=== PATIENT | male | born 1990 | race Caucasian/White ===

== ENCOUNTER 2016-06-12 | Outpatient (CLI) | payer OTHER | END 2016-06-12 19:11 | disposition critical access hospital (66) | CPT/HCPCS: A0425; A0429 ==

== ENCOUNTER 2016-06-12 19:30 | Emergency (ER) | payer OTHER ==
[2016-06-12] MEDS ORDERED: SODIUM CHLORIDE 0.9% 1,000 ML IV ONE (19:53)
[2016-06-12] MEDS ORDERED: ONDANSETRON 4 MG/2 ML VIAL IVP STA (20:51)
[2016-06-12] MEDS ORDERED: POTASSIUM BICARB 25 MEQ TABLET PO STA (20:51)
[2016-06-12] MEDS ORDERED: ONDANSETRON 4 MG/2 ML VIAL ONE (21:01)
[2016-06-12] MEDS ORDERED: POTASSIUM BICARB 25 MEQ TABLET PO ONE (21:02)
[2016-06-12] MEDS ORDERED: metroNIDAZOLE 250 MG TABLET PO STA (22:07)
[2016-06-12] MEDS ORDERED: metroNIDAZOLE 250 MG TABLET PO ONE (22:14)
== END 2016-06-12 22:23 | disposition home or self-care (01) ==
DX: A04.7 Enterocolitis due to Clostridium difficile (principal)
CPT/HCPCS: 36415; 80053; 83690; 85025; 87045; 87046; 87077; 87177; 87209; 87493; 96374; 99283; A9270

== ENCOUNTER 2020-01-09 07:32 | Emergency (ER) | payer OTHER ==
[2020-01-09] MEDS ORDERED: ONDANSETRON 4 MG/2 ML VIAL IVP STA (07:47)
[2020-01-09] MEDS ORDERED: KETOROLAC 30 MG/ML VIAL IVP STA (07:47)
[2020-01-09] MEDS ORDERED: SODIUM CHLORIDE 0.9% 1,000 ML IV STA ×2 (07:47→08:57)
[2020-01-09 07:53] LABS: BASOPHILS % (AUTO) 0.4 %; EOSINOPHILS # (AUTO) 0.3 10^3/uL (0.0-0.7); EOSINOPHILS % (AUTO) 3.9 %; LYMPHOCYTES # (AUTO) 1.7 10^3/uL (1.5-3.5); LYMPHOCYTES % (AUTO) 23.4 %; MEAN CORPUSCULAR HEMOGLOBIN 30.8 pg (27.0-31.0); MEAN CORPUSCULAR HGB CONC 35.7 g/dL (32.0-36.0); MEAN CORPUSCULAR VOLUME 86.3 fL (80.0-94.0); MEAN PLATELET VOLUME 9.4 fL (7.4-11.4); MONOCYTES # (AUTO) 0.5 10^3/uL (0.0-1.0); MONOCYTES % (AUTO) 6.1 %; NEUTROPHILS # (AUTO) 4.9 10^3/uL (1.5-6.6); NEUTROPHILS % (AUTO) 65.8 %; PLT - PLATELET COUNT 256 10^3/uL (130-450); RED BLOOD COUNT 5.19 10^6/uL (4.70-6.10); RED CELL DISTRIBUTION WIDTH 12.1 % (12.0-15.0); WHITE BLOOD COUNT 7.4 x10^3/uL (4.8-10.8)
--- NOTE | 2020-01-09 07:54 | ED Physician Documentation ---
PD HPI ABD PAIN - Stated complaint Stated Complaint: ABD PX - Chief complaint Chief Complaint: Abd Pain - History obtained from History obtained from: Patient, Family - History of Present Illness Timing - onset: Enter time (0500), Today Timing - duration: Hours Timing - details: Abrupt onset, Still present Quality: Sharp, Pain Location: LUQ Radiation: Improved by: Other (nothing) Worsened by: Other (nothing) Associated symptoms: Nausea, Vomiting, Diarrhea. No: Fever Similar symptoms before: Has not had sx before Recently seen: Not recently seen - Additional information Additional information: 29-year-old male previously well awoke at 5 AM this morning with acute pain in the left side of his abdomen. He has radiation of pain from his flank into his testicle and there are no modifying factors. He has nausea he is vomited twice. He has had some diarrhea prior to all of this. He has not had kidney stone. He does have a history of [place] disease. Review of Systems Constitutional: denies: Fever Eyes: denies: Decreased vision Ears: denies: Ear pain Nose: denies: Congestion Throat: denies: Sore throat Cardiac: denies: Chest pain / pressure, Palpitations Respiratory: denies: Dyspnea, Cough GI: reports: Abdominal Pain, Nausea, Vomiting, Diarrhea : denies: Dysuria, Frequency Skin: denies: Rash Musculoskeletal: denies: Neck pain, Back pain, Extremity pain Neurologic: denies: Generalized weakness, Focal weakness, Numbness PD PAST MEDICAL HISTORY - Past Surgical History Past Surgical History: No - Present Medications Home Medications: Ambulatory Orders Medication Instructions Recorded Confirmed Ondansetron Odt [Zofran] 4 mg TL Q6H PRN #10 tablet 06/12/16 metroNIDAZOLE [Flagyl] 500 mg PO TID #45 tablet 06/12/16 Hydrocodone/Acetaminophen 1 - 2 each PO Q6H PRN #14 tablet 01/09/20 [Hydrocodone-Acetamin 5-325 mg] - Allergies Allergies/Adverse Reactions: Allergies Allergy/AdvReac Type Severity Reaction Status Date / Time No Known Drug Allergies Allergy Verified 01/09/20 07:38 - Social History Does the pt smoke?: No Smoking Status: Never smoker Does the pt drink ETOH?: No Does the pt have substance abuse?: No - Immunizations Immunizations are current?: Yes PD ED PE NORMAL - Vitals Vital signs reviewed: Yes (Hypertensive) - General General: Alert and oriented X 3, Well developed/nourished, Other (The patient appears to be in pain writhing on the gurney.) - HEENT HEENT: Atraumatic, PERRL, EOMI - Neck Neck: Supple, no meningeal sign, No bony TTP - Cardiac Cardiac: RRR, No murmur - Respiratory Respiratory: No respiratory distress, Clear bilaterally - Abdomen Abdomen: Normal bowel sounds, Soft, Non tender, Non distended, No organomegaly, Other (Patient is able to localize his pain there is nonspecific tenderness) - Back Back: No CVA TTP, No spinal TTP - Derm Derm: Normal color, Warm and dry, No rash - Extremities Extremities: No deformity, No edema, No calf tenderness / cord - Neuro Neuro: Alert and oriented X 3, 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, No motor deficit, No sensory deficit, Normal speech Eye Opening: Spontaneous Motor: Obeys Commands Verbal: Oriented GCS Score: 15 - Psych Psych: Other (The mood is painful the affect is agonizing) Results - Vitals Vitals: Vital Signs - 24 hr 01/09/20 01/09/20 01/09/20 07:38 08:30 10:00 Temperature 36.3 C L Heart Rate 86 70 69 Respiratory 22 16 18 Rate Blood Pressure 138/93 H 125/71 135/77 H O2 Saturation 100 97 96 Oxygen O2 Source Room air - Labs Labs: Laboratory Tests 01/09/20 01/09/20 01/09/20 07:40 07:45 07:45 WBC 7.4 RBC 5.19 Hgb 16.0 Hct 44.8 MCV 86.3 MCH 30.8 MCHC 35.7 RDW 12.1 Plt Count 256 MPV 9.4 Neut # (Auto) 4.9 Lymph # (Auto) 1.7 Douglas # (Auto) 0.5 Eos # (Auto) 0.3 Baso # (Auto) 0.0 Absolute Nucleated RBC 0.00 Nucleated RBC % 0.0 Sodium 137 Potassium 3.0 L Chloride 103 Carbon Dioxide 17 L Anion Gap 17.0 H BUN 12 Creatinine 1.1 Estimated GFR (MDRD) 78 L Glucose 195 H Estimat Average Glucose 103 H Hemoglobin A1c % 5.2 Calcium 9.4 Total Bilirubin 2.3 H AST 24 ALT 29 Alkaline Phosphatase 77 Total Protein 7.4 Albumin 4.6 Globulin 2.8 Albumin/Globulin Ratio 1.6 Lipase 29 Urine Color Urine Clarity Urine pH Ur Specific [place] Urine Protein Urine Glucose (UA) Urine Ketones Urine Occult Blood Urine Nitrite Urine Bilirubin Urine Urobilinogen Ur Leukocyte Esterase Urine RBC Urine WBC Ur Squamous Epith Cells Urine Bacteria Urine Mucus Ur Microscopic Review Urine Culture Comments 01/09/20 10:11 WBC RBC Hgb Hct MCV MCH MCHC RDW Plt Count MPV Neut # (Auto) Lymph # (Auto) Douglas # (Auto) Eos # (Auto) Baso # (Auto) Absolute Nucleated RBC Nucleated RBC % Sodium Potassium Chloride Carbon Dioxide Anion Gap BUN Creatinine Estimated GFR (MDRD) Glucose Estimat Average Glucose Hemoglobin A1c % Calcium Total Bilirubin AST ALT Alkaline Phosphatase Total Protein Albumin Globulin Albumin/Globulin Ratio Lipase Urine Color DARK YELLOW Urine Clarity CLEAR Urine pH 6.0 Ur Specific [place] 1.025 Urine Protein TRACE Urine Glucose (UA) NEGATIVE Urine Ketones 15 H Urine Occult Blood LARGE H Urine Nitrite NEGATIVE Urine Bilirubin NEGATIVE Urine Urobilinogen 0.2 (NORMAL) Ur Leukocyte Esterase NEGATIVE Urine RBC 6-10 H Urine WBC 0-3 Ur Squamous Epith Cells RARE Squamous Urine Bacteria Rare Urine Mucus Moderate Strands Ur Microscopic Review INDICATED Urine Culture Comments NOT INDICATED - Rads (name of study) KUB Radiology: Prelim report reviewed (Impression: 1. No radiopaque renal stone identified. If clinical concern persist, further evaluation may be obtained with CT.), EMP read indepedently, See rad report Procedures - Bedside sono Bedside sono by EMP: With use of bedside ultrasound the left kidney is imaged it is sonographically nontender there is evidence of hydronephrosis. A repeat bedside ultrasound after treatment and resolution of symptoms demonstrates resolution of hydronephrosis. PD MEDICAL DECISION MAKING - ED course Complexity details: reviewed old records, reviewed results, re-evaluated patient, considered differential, d/w patient ED course: Previously well 29-year-old male with acute left-sided abdominal pain is nontender on exam has evidence of hydronephrosis on bedside ultrasound and appears to be in significant pain. His presentation and physical findings are consistent with ureteral lithiasis. He is administered intravenous saline Toradol and Zofran and a plain film KUB is obtained as the CAT scanner is c urrently down. The patient has some improvement with the Toradol he requires Dilaudid for further improvement he has an exacerbation of this pain is given a second milligram of Dilaudid and eventually has no pain. We did discuss the possibility of diabetes and an A1c showed an average glucose of 103. The patient is not getting up at night to go to the bathroom and I suspect his value this morning of 195 is a random elevation, probably demonstrating poor glucose tolerance. At the conclusion of the visit the patient's urine does come back with hematuria. All of our findings are consistent with ureteral lithiasis present. We were not able to perform CAT scan today because the scanner was down and the patient's pain resolved and a repeat ultrasound exam demonstrated resolution of the prior hydronephrosis. I have given the patient instructions on ureterolithiasis and referral to urology if it becomes necessary and I have provided pain medication for the patient should he have recurrence of his symptoms. Departure - Departure Disposition: 01 Home, Self Care Clinical Impression: Ureterolithiasis Condition: Stable Instructions: ED Stone Renal W Colic, ED Stone Renal Passed Follow-Up: [facility] T[facility] [Provider Group] Lenard Burnahm MD [Provider Admit Priv/Credential] - Prescriptions: Hydrocodone/Acetaminophen [Hydrocodone-Acetamin 5-325 mg] 1 - 2 each PO Q6H PRN #14 tablet PRN Reason: Pain
[2020-01-09 08:14] LABS: ALBUMIN 4.6 g/dL (3.2-5.5); ALBUMIN/GLOBULIN RATIO 1.6 (1.0-2.2); BILIRUBIN,TOTAL 2.3 mg/dL (0.2-1.0); CALCIUM 9.4 mg/dL (8.5-10.3); CREATININE 1.1 mg/dL (0.6-1.2); TOTAL PROTEIN 7.4 g/dL (6.7-8.2)
[2020-01-09] MEDS ORDERED: HYDROmorphone 1 MG/ML CARPUJECT IVP STA ×2 (08:21→09:28)
[2020-01-09] MEDS ORDERED: POTASSIUM CHLORIDE 20 MEQ TABLET PO STA (08:51)
--- NOTE | 2020-01-09 09:06 | XRAY Report ---
PROCEDURE: Abdomen 1 View X-Ray INDICATIONS: Left side abdominal pain and suspected kidney stone. TECHNIQUE: 1 view of the abdomen were acquired. COMPARISON: None. FINDINGS: Surgical changes and devices: None. Bowel: No pneumoperitoneum. The bowel gas pattern is within normal limits. Soft tissues: No radiopaque renal stones identified. Evaluation of left kidney is slightly limited b y the overlying colon. Bones: No suspicious bony abnormalities. IMPRESSION: 1. No radiopaque renal stone identified. If clinical concern persists, further evaluation may be obtained with CT. Reviewed by: Mejia Bell MD on 01/09/2020 9:04 AM PDT Approved by: Mejia Bell MD on 01/09/2020 9:04 AM PDT Station ID: [id number]
[2020-01-09 09:38] LABS: HEMOGLOBIN A1c% 5.2 % (4.27-6.07)
[2020-01-09 10:20] LABS: GLUCOSE, URINE (UA) NEGATIVE (NEGATIVE); KETONES,URINE (UA) 15 mg/dL (NEGATIVE); LEUKOCYTE ESTERASE, URINE NEGATIVE (NEGATIVE); NITRITE,URINE NEGATIVE (NEGATIVE); OCCULT BLOOD,URINE LARGE (NEGATIVE); PROTEIN,URINE TRACE mg/dL (NEGATIVE); UROBILINOGEN,URINE 0.2 (NORMAL) E.U./dL (NORMAL)
[2020-01-09 10:23] LABS: CLARITY,URINE CLEAR (CLEAR)
[2020-01-09 10:28] LABS: BILIRUBIN,URINE NEGATIVE (NEGATIVE); ICTOTEST,URINE NEGATIVE
[2020-01-09 10:34] LABS: BACTERIA,URINE Rare /HPF (None Seen); MUCUS,URINE Moderate Strands; SQUAMOUS EPITHELIAL CELL,UR RARE Squamous (<= Few)
[2020-01-09 10:47] VITALS: BP 125/80
== END 2020-01-09 11:01 | disposition home or self-care (01) ==
LOC: ED 07:32
DX: N20.1 Calculus of ureter (principal); R73.02 Impaired glucose tolerance (oral); R03.0 Elevated blood-pressure reading, without diagnosis of hypertension
CPT/HCPCS: 36415; 74018; 80053; 81001; 83036; 83690; 85025; 96361; 96374; 96375; 96376; 99283; 99284; A9270; J1170; 81003; 87086

== ENCOUNTER 2022-10-11 21:14 | Emergency (ER) | payer OTHER ==
[2022-10-11] MEDS ORDERED: CEPHALEXIN 250 MG Prepack 8 CAP BOTTLE PO STA (21:49)
--- NOTE | 2022-10-11 21:50 | ED Physician Documentation ---
History of Present Illness - Stated complaint Stated Complaint: HEAD INJ - Chief complaint Chief Complaint: Heent - History obtained from History obtained from: Patient (He cut his hair about 5 days ago. A few days after he started develop a draining rash on the top of the scalp. No fevers.) PD PAST MEDICAL HISTORY - Past Medical History GI: C.difficile - Past Surgical History Past Surgical History: No - Present Medications Home Medications: Ambulatory Orders Medication Instructions Recorded Confirmed Ondansetron Odt [Zofran] 4 mg TL Q6H PRN #10 tablet 06/12/16 metroNIDAZOLE [Flagyl] 500 mg PO TID #45 tablet 06/12/16 Hydrocodone/Acetaminophen 1 - 2 each PO Q6H PRN #14 tablet 01/09/20 [Hydrocodone-Acetamin 5-325 mg] Mupirocin 2% Oint [Bactroban 2% 1 applic TOP BID #50 gm 10/11/22 Oint] cephALEXin [Keflex] 500 mg PO Q6H #28 cap 10/11/22 - Allergies Allergies/Adverse Reactions: Allergies Allergy/AdvReac Type Severity Reaction Status Date / Time No Known Drug Allergies Allergy Verified 10/11/22 21:30 - Social History Does the pt smoke?: No Smoking Status: Never smoker Does the pt drink ETOH?: No Does the pt have substance abuse?: No - Immunizations Immunizations are current?: Yes PD ED PE NORMAL - Vitals Vital signs reviewed: Yes - General General: Alert and oriented X 3, No acute distress - HEENT HEENT: Other (He has flaky impetigo on the vertex of his scalp. A culture was sent during exam.) - Neuro Neuro: Alert and oriented X 3, Normal speech Results - Vitals Vitals: Vital Signs - 24 hr 10/11/22 21:26 Temperature 37.0 C Heart Rate 71 Respiratory 17 Rate Blood Pressure 140/85 H O2 Saturation 98 Oxygen O2 Source Room air Departure - Departure Disposition: Home, Self Care Clinical Impression: Impetigo Condition: Good Record reviewed to determine appropriate education?: Yes Instructions: Impetigo Prescriptions: Mupirocin 2% Oint [Bactroban 2% Oint] 1 applic TOP BID #50 gm cephALEXin [Keflex] 500 mg PO Q6H #28 cap Comments: I sent your prescription electronically to [facility] in [place]. We are performing a wound culture, the results should be done in 48-72 hours. If antibiotic change is necessary we will call you. Return if worse in the meantime, especially if you develop increased pain, fevers, cannot keep down the medication. Otherwise follow-up with your physician in approximately 2-3 days.
[2022-10-11 21:59] VITALS: BP 136/98
== END 2022-10-11 22:00 | disposition home or self-care (01) ==
LOC: ED 21:14
DX: L01.00 Impetigo, unspecified (principal)
CPT/HCPCS: 87070; 87205; 99283

== ENCOUNTER 2023-06-25 00:29 | Outpatient (CLI) | payer OTHER | END 2023-06-25 23:59 | disposition critical access hospital (66) | LOC: EMS 00:29 | DX: R10.9 Unspecified abdominal pain (principal); R11.2 Nausea with vomiting, unspecified; R19.7 Diarrhea, unspecified | CPT/HCPCS: A0425; A0427 ==

== ENCOUNTER 2023-06-25 00:45 | Emergency (ER) | payer OTHER ==
--- NOTE | 2023-06-25 01:13 | ED Physician Documentation ---
History of Present Illness - Stated complaint Stated Complaint: ABD PAIN, N/V/D - Chief complaint Chief Complaint: Abd Pain - History obtained from History obtained from: Patient - Additonal information Additional information: 32yM with pmh c diff colitis in 2015, IBS, gilbert syndrome, p/w abdominal pain, nbnb n/v and watery diarrhea intermittent X 1 month, worsening acutely tonight. denies fever, urinary sx, back pain. this is similar to prior flares except for the vomiting. patient has referral to GI but has not followed up yet. PD PAST MEDICAL HISTORY - Past Medical History GI: C.difficile - Past Surgical History Past Surgical History: No HEENT: Other - Present Medications Home Medications: Ambulatory Orders Medication Instructions Recorded Confirmed Ondansetron Odt [Zofran Odt] 4 mg TL Q6H PRN #10 tablet 06/25/23 - Allergies Allergies/Adverse Reactions: Allergies Allergy/AdvReac Type Severity Reaction Status Date / Time No Known Drug Allergies Allergy Verified 06/25/23 00:57 - Social History Does the pt smoke?: No Smoking Status: Never smoker Does the pt drink ETOH?: No Does the pt have substance abuse?: No - Immunizations Immunizations are current?: Yes - POLST Patient has POLST: No PD ED PE NORMAL - Vitals Vital signs reviewed: Yes - General General: Alert and oriented X 3, No acute distress, Well developed/nourished - HEENT HEENT: Atraumatic, PERRL, EOMI, Moist mucous membranes, Pharynx benign - Neck Neck: Supple, no meningeal sign - Abdomen Abdomen: Non tender, Non distended, No organomegaly - Derm Derm: Normal color, Warm and dry - Psych Psych: Normal mood, Normal affect Results - Vitals Vitals: Vital Signs - 24 hr 06/25/23 00:51 Temperature 36.1 C L Heart Rate 91 Respiratory 22 Rate Blood Pressure 112/86 H O2 Saturation 99 Oxygen O2 Source Room air - Labs Labs: Laboratory Tests 06/25/23 06/25/23 06/25/23 00:49 00:49 01:27 WBC 24.9 H RBC 5.87 Hgb 17.6 Hct 51.7 MCV 88.1 MCH 30.0 MCHC 34.0 RDW 12.3 Plt Count 357 MPV 9.5 Neut # (Auto) Not Reportable Lymph # (Auto) Not Reportable Wolfe # (Auto) Not Reportable Eos # (Auto) Not Reportable Baso # (Auto) Not Reportable Absolute Nucleated RBC Not Reportable Total Counted 100 Band Neuts % (Manual) 6 Abnorm Lymph % (Manual) 0 Nucleated RBC % Not Reportable Neutrophils # (Manual) 20.7 H Lymphocytes # (Manual) 2.5 Monocytes # (Manual) 1.2 H Eosinophils # (Manual) 0.5 Basophils # (Manual) 0.0 Differential Comment MANUAL DIFFERENTIAL Platelet Estimate NORMAL (130-450,000) RBC Morph Micro Appear NORMAL APPEARANCE Sodium 139 Potassium 3.5 Chloride 102 Carbon Dioxide 25 Anion Gap 12.0 BUN 16 Creatinine 1.1 Estimated GFR (MDRD) 77 L Glucose 138 H Calcium 10.5 H Total Bilirubin 1.2 H AST 19 ALT 42 Alkaline Phosphatase 111 Total Protein 8.0 Albumin 5.2 Globulin 2.8 Albumin/Globulin Ratio 1.9 Lipase 23 Stl C. diff Tox B Gene NEGATIVE PD Medical Decision Making - ED course ED course: 32yM with pmh c diff (2014), IBS, p/w abdominal pain, n/v/d for the past month. 4mg IV zofran given by ems en route with resolution of nausea. still with severe abdominal pain. IV dilaudid provided with resolution of pain. 1L IVF provided given fluid losses from diarrhea. cbc, abdominal panel, u/a ordered. Elevated WBC 24.[address] a/p which showed nonspecific colitis. d/w patient incidental liver nodule. c diff negative. likely viral enteritis [place] with his GI referral as outpatient. return precautions given. Departure - Departure Disposition: 01 Home, Self Care Clinical Impression: Abdominal pain, Vomiting, Diarrhea, Colitis Condition: Stable Instructions: ED Nausea Vomiting Prescriptions: Ondansetron Odt [Zofran Odt] 4 mg TL Q6H PRN #10 tablet PRN Reason: Nausea / Vomiting Comments: You were seen in the emergency department for nausea and diarrhea and abdominal pain. Prescription for zofran antinausea medicine was sent electronically to [facility] pharmacy. Please follow-up with your primary care provider and GI and return to the emergency department if you have any new or worsening symptoms or other concerns. Forms: PCP List
[2023-06-25 01:14] LABS: BASOPHILS % (AUTO) 0.4 %; EOSINOPHILS % (AUTO) 1.2 %; HCT - HEMATOCRIT 51.7 % (42.0-52.0); HGB - HEMOGLOBIN 17.6 g/dL (14.0-18.0); LYMPHOCYTES % (AUTO) 11.2 %; MEAN CORPUSCULAR VOLUME 88.1 fL (80.0-94.0); MEAN PLATELET VOLUME 9.5 fL (7.4-11.4); MONOCYTES % (AUTO) 4.7 %; PLT - PLATELET COUNT 357 10^3/uL (130-450); RED BLOOD COUNT 5.87 10^6/uL (4.70-6.10); RED CELL DISTRIBUTION WIDTH 12.3 % (12.0-15.0); WHITE BLOOD COUNT 24.9 x10^3/uL (4.8-10.8)
[2023-06-25 01:17] LABS: ABNORMAL LYMPHS % (MANUAL) 0 %
[2023-06-25 01:28] LABS: ALBUMIN 5.2 g/dL (3.2-5.5); ALBUMIN/GLOBULIN RATIO 1.9 (1.0-2.2); BILIRUBIN,TOTAL 1.2 mg/dL (0.2-1.0); CALCIUM 10.5 mg/dL (8.5-10.3); CREATININE 1.1 mg/dL (0.6-1.3); POTASSIUM 3.5 mmol/L (3.5-4.5)
[2023-06-25 01:31] LABS: BAND NEUTROPHILS % (MANUAL) 6 %; DIFFERENTIAL COMMENT MANUAL DIFFERENTIAL; EOSINOPHILS # (MANUAL) 0.5 10^3/uL (0-0.7); LYMPHOCYTES # (MANUAL) 2.5 10^3/uL (1.5-3.5); LYMPHOCYTES % (MANUAL) 10 %; MONOCYTES # (MANUAL) 1.2 10^3/uL (0.0-1.0); NEUTROPHILS # (MANUAL) 20.7 10^3/uL (1.5-6.6); PLATELET ESTIMATE, MANUAL NORMAL (130-450,000) (NORMAL); RBC MORPHOLOGY (MULTIPLE) NORMAL APPEARANCE (NORMAL)
[2023-06-25] MEDS: FAMOTIDINE 20 MG/2 ML VIAL IVP STA (01:33)
[2023-06-25] MEDS: SODIUM CHLORIDE 0.9% 1,000 ML IV STA (01:33)
[2023-06-25] MEDS: HYDROmorphone 1 MG/ML CARPUJECT IVP STA (01:33)
[2023-06-25] MEDS ORDERED: iohexoL-300 100 ML VIAL ONE (01:47)
[2023-06-25] MEDS: iohexoL-300 100 ML VIAL IVP ONE (02:15)
[2023-06-25 04:08] VITALS: BP 121/74; O2SAT 94
--- NOTE | 2023-06-25 10:41 | CT Report ---
PROCEDURE: Abdomen/Pelvis W INDICATIONS: abdominal pain, n/v/d CONTRAST: Omni 300, 100mls TECHNIQUE: After the administration of intravenous contrast, a CT scan of the abdomen and pelvis was performed. Images were recorded and evaluated at appropriate window settings. Reformats: coronal and sagittal. F or radiation dose reduction, the following was used: automated exposure control, adjustment of mA and /or kV according to patient size. COMPARISON: None. FINDINGS: Image quality: Diagnostic. Lower chest: Bibasilar atelectasis. There is a small hiatal hernia. Evaluation of the right hemidiap hragm. Liver: Normal size. Mild hepatic steatosis. Small indeterminate hepatic hypodensities are noted, most likely cysts or hemangiomas. No solid mass. Gallbladder and biliary tree: Normal gallbladder. No radiopaque gallstones. No biliary dilation. Spleen: No splenomegaly. Pancreas: No pancreatic ductal dilation. Adrenals: No adrenal nodule. Kidneys and ureters: No hydronephrosis. No renal cystic lesion which requires follow up. No solid mas s. Stomach, bowel and peritoneum: Fluid-filled small bowel and colon loops are normal in caliber. Subtle increased mucosal enhancement. No bowel distension. No pathologic free fluid. Lymph nodes: No central or retroperitoneal adenopathy. Vessels: No infrarenal aortic aneurysm. PELVIS Reproductive organs: Unremarkable. Bladder: No abnormal wall thickening, accounting for underdistention. Pelvic lymph nodes: No pelvic adenopathy by size criteria. Bones: No aggressive osseous abnormality. Other: No significant ventral or inguinal hernia. IMPRESSION: 1. Fluid-filled small bowel and colon loops are normal in caliber subtle increased mucosal enhancemen t. The finding is nonspecific but suggests gastroenteritis or mild enterocolitis. Recommend clinical correlation. 2. No bowel obstruction. 3. Mild hepatic steatosis. 4. A few indeterminate hepatic hypodensities are most likely cysts. 5. Small hiatal hernia. No significant discrepancy with the preliminary interpretation. Reviewed by: Yariel Griggs MD on 06/25/2023 10:40 AM [facility] Approved by: Yariel Griggs MD on 06/25/2023 10:40 AM [facility] Station ID: [id number]
== END 2023-06-25 04:08 | disposition home or self-care (01) ==
LOC: EDUNIT# → ED 00:45
DX: K80.50 Calculus of bile duct without cholangitis or cholecystitis without obstruction (principal)
CPT/HCPCS: 36415; 74177; 80053; 83690; 85025; 87493; 96361; 96374; 99284; Q9967